=== PATIENT | female | born 1960 | race Caucasian/White ===

== ENCOUNTER → 2018-08-28 | Outpatient (CLI) | payer BC ==
[2015-08-09 12:17] VITALS: BP 88/51
[~2018-08-28] MED LIST: FLONASE ALLERG9.9 ML NAS; GLUCOSAMINE-CH1 EAC6 PO; MULTI-DAY VITA1 EACH PO
== END ==
LOC: RAD 07:58
DX: R09.1 Pleurisy (principal); R07.89 Other chest pain; R07.9 Chest pain, unspecified

== ENCOUNTER → 2021-02-07 | Outpatient (CLI) | payer BC ==
[2015-08-09 12:17] VITALS: BP 88/51
== END ==
LOC: MAMMO 12:46
DX: Z12.31 Encounter for screening mammogram for malignant neoplasm of breast (principal)

== ENCOUNTER → 2022-05-01 | Outpatient (CLI) | payer BC ==
[2022-05-01 11:41] LABS: ALBUMIN 3.9 g/dL (3.5-5.0)
[2022-05-01 11:42] LABS: POTASSIUM 4.1 mmol/L (3.5-5.1)
[2022-05-01 11:43] LABS: CALCIUM 8.7 mg/dL (8.3-10.5)
[2022-05-01 11:51] LABS: TOTAL BILIRUBIN 0.1 mg/dL (0.2-1.2)
== END ==
LOC: LAB 11:09
PROVIDERS: Nurse Practitioner
DX: U07.1 COVID-19 (principal)

== ENCOUNTER → 2024-06-12 | Outpatient (REF) | payer BC | LOC: LAB 07:48 | DX: U07.1 COVID-19 (principal); B34.9 Viral infection, unspecified ==

== ENCOUNTER → 2024-09-04 | Outpatient (CLI) | payer BC ==
[2024-09-04 07:50] LABS: BASO # 0.02 K/mm3 (0.02-0.10); EOS # 0.27 K/mm3 (0.04-0.40); EOS % 4.5 % (1.0-5.0); HEMATOCRIT 36.3 % (37.0-47.0); HEMOGLOBIN 11.7 g/dL (12.5-16.0); LYMPH# 2.56 K/mm3 (1.50-4.00); MEAN CELL VOLUME 93 fl (78-100); MEAN CORPUSCULAR HEMOGLOBIN 30 pg (27-31); MEAN CORPUSCULAR HGB CONC 32 g/dL (33-37); MEAN PLATELET VOLUME 11.3 fl (7.4-10.4); MONO # 0.69 K/mm3 (0.20-0.80); NEU # 2.49 K/mm3 (1.40-6.50); PLATELET COUNT 473 K/mm3 (130-400); RED BLOOD COUNT 3.89 M/mm3 (4.10-5.30)
[2024-09-04 08:09] LABS: ALBUMIN 4.2 g/dL (3.4-4.8)
[2024-09-04 08:10] LABS: CALCIUM 9.5 mg/dL (8.3-10.5)
[2024-09-04 08:11] LABS: TOTAL PROTEIN 7.5 g/dL (6.2-8.1)
[2024-09-04 08:13] LABS: TOTAL BILIRUBIN 0.3 mg/dL (0.2-1.2)
[2024-09-04 08:46] LABS: PARTIAL THROMBOPLASTIN TIME 24.5 SECONDS (21.0-32.0); PROTHROMBIN TIME 9.2 SECONDS (9.0-12.0)
== END ==
LOC: LAB 07:11
PROVIDERS: Physician Assistant
DX: Z01.812 Encounter for preprocedural laboratory examination (principal); Z13.29 Encounter for screening for other suspected endocrine disorder; Z13.1 Encounter for screening for diabetes mellitus; M25.521 Pain in right elbow; E78.5 Hyperlipidemia, unspecified